=== PATIENT | male | born 1970 | race Caucasian/White ===

== ENCOUNTER 2021-12-04 07:08 | Day surgery (SDC) | payer OTHER ==
[~2021-12-04] VITALS: Ht 180.3 cm; Wt 100.0 kg
[2021-12-04] VITALS (141 sets, daily range): BP systolic 88–163; BP diastolic 41–106
[2021-12-04 08:32] LABS: HEMATOCRIT 43.2 % (39.0-50.0); HEMOGLOBIN 13.4 g/dl (14.0-18.0); MEAN CORPUSCULAR HGB 27.9 pG CALC (26.0-32.0); NEUT# 3.28 thou/uL (1.82-7.42); RED BLOOD COUNT 4.8 mill/uL (4.70-6.10)
[2021-12-04 09:09] LABS: ALBUMIN 4.1 g/dL (3.2-5.0); ALKALINE PHOSPHATASE 72 u/l (38-126); ANION GAP 12 (6-22 (CALC)); BILIRUBIN, TOTAL 0.4 mg/dL (0.0-1.4); BUN 16 mg/dL (9-20); BUN/CREATININE RATIO 18 (12-20 (CALC)); CARBON DIOXIDE 29 mmol/l (22-30); CHLORIDE 102 mmol/l (95-108); CREATININE 0.9 mg/dL (0.7-1.3); GFR > 60 ML/MIN (>=60 (CALC)); GFR FOR AFR.AMER. > 60 ML/MIN (>=60 (CALC)); POTASSIUM 4.3 mmol/l (3.5-5.1); SGOT/AST 30 u/l (17-59); SODIUM 139 mmol/l (137-146); TOTAL PROTEIN 7.4 g/dL (6.3-8.2)
[2021-12-04] MEDS ORDERED: CLONIDINE0.1 MG PO (11:20)
[2021-12-04] MEDS ORDERED: KLONOPIN0.5 MG PO (11:21)
[2021-12-04] MEDS ORDERED: NALTREXONE50 MG PO (11:21)
[2021-12-05 04:19] VITALS: BP 133/43
[2021-12-05 05:28] LABS: HEMATOCRIT 41.9 % (39.0-50.0); HEMOGLOBIN 13.6 g/dl (14.0-18.0); IMMATURE GRANULOCYTES 0.2 % (0.0-5.0); MEAN CORPUSCULAR HGB 28.6 pG CALC (26.0-32.0); MEAN CORPUSCULAR HGB CONC 32.5 g/dL CAL (32.0-36.0); NEUT# 7.36 thou/uL (1.82-7.42); RED BLOOD COUNT 4.76 mill/uL (4.70-6.10)
[2021-12-05 06:13] LABS: ALBUMIN 4.4 g/dL (3.2-5.0); ALKALINE PHOSPHATASE 76 u/l (38-126); BUN 12 mg/dL (9-20); BUN/CREATININE RATIO 15 (12-20 (CALC)); CHLORIDE 110 mmol/l (95-108); CREATININE 0.8 mg/dL (0.7-1.3); GFR > 60 ML/MIN (>=60 (CALC)); GFR FOR AFR.AMER. > 60 ML/MIN (>=60 (CALC)); MAGNESIUM 2.1 mg/dL (1.6-2.3); POTASSIUM 4.5 mmol/l (3.5-5.1); SGOT/AST 48 u/l (17-59); SODIUM 143 mmol/l (137-146); TOTAL PROTEIN 7.7 g/dL (6.3-8.2)
[2021-12-05 06:14] LABS: ANION GAP 18 (6-22 (CALC)); BILIRUBIN, TOTAL 0.8 mg/dL (0.0-1.4); CARBON DIOXIDE 20 mmol/l (22-30)
[2021-12-05 08:02] VITALS: BP 138/79
[2021-12-05 12:33] VITALS: BP 141/57
[2021-12-05 16:55] VITALS: BP 133/80
== END 2021-12-05 18:03 | disposition home or self-care (01) | DRG 897 ==
LOC: MS2 07:08 → ANR 07:08
PROVIDERS: ATTEND Anesthesiology
DX: F11.20 Opioid dependence, uncomplicated (principal)
CPT/HCPCS: J2060; J2354; J3475